=== PATIENT | male | born 1975 | race Caucasian/White ===

== ENCOUNTER 2020-03-30 12:03 | Day surgery (SDC) | payer BC ==
[~2020-03-30 12:03] MED LIST: ACETAMINOPHEN 325 MG TABLET PO PRN; CEFOXITIN SODIUM 2 GM in DEXTROSE 5%-WATER 100 ML IV PRN; DEXAMETHASONE SOD PHOSPHATE INJ 4 MG/1 ML VIAL ONE; IBUPROFEN 800 MG in NORMAL SALINE 250 ML IV PRN; KETOROLAC TROMETHAMINE 60 MG/2 ML SDV ONE; LIDOCAINE 2% INJ-PF (20 MG/ML) 2 ML AMPUL ONE; ONDANSETRON HCL INJ/PF 4 MG/2 ML SDV ONE; SUCCINYLCHOLINE CHLORIDE INJ 200 MG/10 ML VIAL ONE
[2020-03-30] MEDS ORDERED: ACETAMINOPHEN 325 MG TABLET ONE (13:12)
[2020-03-30] MEDS ORDERED: BUPIVACAINE HCL 0.25 % INJ/PF (2.5 MG/1 ML) 30 ML VIAL ONE (15:19)
[2020-03-30] MEDS ORDERED: LIDOCAINE 1% INJ-PF (10 MG/ML) 30 ML SDV ONE (15:19)
[2020-03-30] MEDS ORDERED: PROPOFOL INJ 200 MG/20 ML VIAL IV ONE (15:28)
[2020-03-30] MEDS ORDERED: FENTANYL CITRATE INJ/PF 100 MCG/2 ML AMPUL ONE (15:28)
[2020-03-30] MEDS ORDERED: MIDAZOLAM 2 MG/2 ML INJ ONE (15:28)
[2020-03-30] MEDS ORDERED: DIPHENHYDRAMINE HCL 50 MG/ML VIAL IV PRN (16:10)
[2020-03-30] MEDS ORDERED: MEPERIDINE HCL/PF INJ 25 MG/1 ML DISP.SYRIN IV PRN (16:10)
[2020-03-30] MEDS ORDERED: PROMETHAZINE HCL INJ 25 MG/1 ML VIAL IV PRN (16:10)
[2020-03-30] MEDS ORDERED: OXYCODONE-ACETAMINOPHEN 5-325 MG TABLET PO PRN (16:10)
[2020-03-30] MEDS ORDERED: FENTANYL CITRATE INJ/PF 100 MCG/2 ML AMPUL IV PRN (16:10)
--- NOTE | 2020-03-30 16:39 | Discharge Summary ---
Discharge Summary (SDC) - Discharge Final Diagnosis: Inflamed pilonidal cyst Date of Surgery: 03/30/20 Discharge Date: 03/30/20 Condition: Stable Treatment or Instructions: Discharge home. Diet as tolerated. Activity: Nonstrenuous. Okay to shower. No hot tubs, bathtubs, or swimming pools. Clayton 10/325 mg p.o. every 6 hours as needed for pain. Prescriptions: Hydrocodone/Acetaminophen [Clayton 10-325 mg Tablet] 1 tab PO Q6HP PRN #28 tablet PRN Reason: For Pain Discharge Diet: As Tolerated Respiratory Treatments at Home: Deep Breathing/Coughing, Incentive Spirometer Discharge Activity: Balance Activity w/Rest Home Care Assistance: None Needed Report the Following to Your Physician Immediately: Shortness of Breath, Nausea, Vomiting, Increase in Pain, Fever over 101 Degrees, Unusual Bleeding, Redness, Swelling, Warmth
--- NOTE | 2020-03-30 16:43 | Operative Report ---
Nonrecallable Operative Report DATE OF SURGERY: 03/30/20 PREOPERATIVE DIAGNOSIS: Pilonidal cyst, inflamed POSTOPERATIVE DIAGNOSIS: Same as above OPERATION: Excision of pilonidal cyst SURGEON: NIMO BARNES ANESTHESIA: GA TISSUE REMOVED OR ALTERED: Pilonidal cyst COMPLICATIONS: None apparent ESTIMATED BLOOD LOSS: Minimal PROCEDURE: Drains/implants: None. Procedure in detail: After informed consent was obtained, the patient was brought to the operating room and laid in the prone position. The area of the sacrum and pilonidal area were prepped and draped in a normal sterile fashion. There were multiple pits, and a fistula identified. The pits were excised down to the sacral fascia. A small cavity was identified, without evidence of purulence. The entire pilonidal cyst was excised in its entirety. An inferior fistula was identified, and excised as well. There was a small skin bridge between the 2 incisions. This was left intact. The subcutaneous tissues were then closed using 2-0 Vicryl suture in simple interrupted fashion. The overlying skin was closed using 0 Vicryl suture in vertical mattress fashion. Dressings were then placed, and the procedure was concluded. All sponge, instrument, and needle counts were correct x2. Condition: Stable. Nishi Duque PA-C was scrubbed and present the entirety the procedure. She assisted with all portions of the procedure including excision of the cyst, closure of the subcutaneous tissues, and closure of the skin.
[2020-03-30] MEDS ORDERED: HYDROCODONE/ACETAMINOPHEN 10-325 MG TABLET PO PRN (17:28)
[2020-03-30] MEDS ORDERED: HYDROCODONE/ACETAMINOPHEN 10-325 MG TABLET ONE (18:28)
[2020-03-30 18:54] VITALS: BP 117/72
== END 2020-03-30 18:50 | disposition home or self-care (01) ==
LOC: OROUT 12:03
PROVIDERS: ATTEND Surgery
DX: L05.91 Pilonidal cyst without abscess (principal); Z20.828 Contact with and (suspected) exposure to other viral communicable diseases; Z84.0 Family history of diseases of the skin and subcutaneous tissue; Z87.891 Personal history of nicotine dependence; Z86.19 Personal history of other infectious and parasitic diseases
CPT/HCPCS: 11771; U0003; J2250; J1100; J1885; J3010; J0330; J2405; J7060; J7050; J2704; J1741; J3490; J0694; C9803; 300; 87635